=== PATIENT | male | born 1990 | race Caucasian/White ===

== ENCOUNTER 2017-04-18 16:32 | Emergency (ER) | payer OTHER, MEDICAID ==
--- NOTE | 2017-04-18 16:57 | EDPHY ---
H & P Stated Complaint: Landed on L shoulder snowboarding;pain L of sternum;lungs CTA Time Seen by Provider: 04/18/17 16:54 HPI/ROS: HPI: This is a 26-year-old male who presents with Chief Complaint: Landed on L shoulder snowboarding;pain L of sternum; lungs CTA Location: Left anterior chest/clavicle Quality: Injury Duration: 1-3 hours prior to arrival Signs and Symptoms: no shortness of breath at rest, no shortness of breath on exertion, no cough, no hemoptysis, no radiation, no weakness, no tingling, no swelling Timing: Acute Severity: 10/06 Context: Patient is right-hand dominant, was at the park, using his snowboard to go down the stair rail when he lost his balance and fell onto his left side. He denies LOC/head injury/neck pain. He was wearing a helmet. He reports that he feels pain in his left upper anterior chest near his clavicle. He denies any shoulder/elbow/wrist pain or decreased range of motion. Patient denies shortness of breath or increased worsening of pain with inspiration. Patient reports that he has a history of pneumothorax but this injury feels different. Modifying Factors: None ROS: see HPI Constitutional: No fever, no chills, no weight loss Eyes: No blurred vision Respiratory: No shortness of breath, no cough Cardiovascular: No chest pain Gastrointestinal: No nausea, no vomiting no diarrhea Genitourinary: No dysuria Extremities: No myalgias Neurologic: No weakness, no numbness Skin: No rashes Hematologic: No bruising, no bleeding MEDICAL/SURGICAL/SOCIAL HISTORY: Medical history: ADD/ADHD, hx pneumo Surgical history: Denies Social history: Student. CONSTITUTIONAL: Young adult white male, pleasant and cooperative, awake and alert, no obvious distress HEENT: Atraumatic and normocephalic, PERRL, EOMI. no globe entrapment, no raccoon eyes. no Orantes signs.Tympanic membranes clear. No tympanic membrane rupture. Nares patent; no septal hematoma. Oropharynx clear, no exudate and moist pink mucosa. No malocclusion. no dental trauma. Airway patent. No lymphadenopathy. NECK: supple, no midline tenderness, flexion 45 degrees, extension 45 degrees, right and left lateral flexion 45 degrees. No meningismus. Cardiovascular: Normal S1/S2, regular rate, regular rhythm, without murmur rub or gallop. PULMONARY/CHEST: Symmetrical and mild tenderness left anterior chest; mild swelling noted. Clavicle shows no deformity. no crepitus. No ecchymosis. Clear to auscultation bilaterally. Good air movement. No accessory muscle usage. ABDOMEN: Soft, nondistended, nontender, no ecchymosis, no rebound, no guarding , no peritoneal signs, no masses or organomegaly. No CVAT. PELVIC: no pain with rocking; bilateral hips flexion 125 degrees, extension 30 degrees, with no pain internal rotation and no pain external rotation. BACK: No midline tenderness, no paraspinous spasm, deep tendon reflexes 2/2, no pain with straight leg raise EXTREMITIES: 2/2 pulses, left SHOULDER: Arc test abduction to 180, abduction to 45, horizontal flexion 130, horizontal extension to 45, deltoid strength 5 /5. No pain with Neer test/Youssef test (impingement). No Tenderness to palpation over AC joint. no deformities, no clubbing, no cyanosis or edema. NEUROLOGICAL: no focal neuro deficits. GCS 15. SKIN: Warm and dry, no erythema. no rash. Good capillary refill. Source: Patient Exam Limitations: No limitations - Personal History Current Tetanus Diphtheria and Acellular Pertussis (TDAP): Yes Tetanus Vaccine Date: within last 10 years - Medical/Surgical History Hx Asthma: No Hx Chronic Respiratory Disease: No Hx Diabetes: No Hx Cardiac Disease: No Hx Renal Disease: No Hx Cirrhosis: No Hx Alcoholism: No Hx HIV/AIDS: No Hx Splenectomy or Spleen Trauma: No Other PMH: ADD/ADHD, hx pneumo - Social History Smoking Status: Never smoked Constitutional: Initial Vital Signs Temperature (C) 36.6 C 04/18/17 16:34 Heart Rate 88 04/18/17 16:34 Respiratory Rate 18 04/18/17 16:34 Blood Pressure 120/85 H 04/18/17 16:34 O2 Sat (%) 97 04/18/17 16:34 O2 Delivery Mode Room Air Allergies/Adverse Reactions: No Known Allergies Allergy (Verified 04/18/17 16:33) Home Medications: Medication Instructions Recorded Adderall 20 mg (RX) 20 mg PO DAILY 01/22/14 Medical Decision Making - Diagnostics Imaging Results: Imaging Impressions Chest X-Ray 04/18/17 17:02 Impression: Nothing obviously acute identified. Is there any thoracic spine pain ? Please see above. 2. Left clavicle, 2 views History: Pain post ski injury Findings: No clavicle fracture is identified. The left AC joint is mildly widened and there is some soft tissue swelling above the clavicular head right suspect there is an old healed clavicle fracture or postoperative decompression surgery. There is no widening of the coracoclavicular distance. Impression: Query AC joint sprain. No clavicle fracture identified. Clavicle X-Ray 04/18/17 17:02 Impression: Nothing obviously acute identified. Is there any thoracic spine pain ? Please see above. 2. Left clavicle, 2 views History: Pain post ski injury Findings: No clavicle fracture is identified. The left AC joint is mildly widened and there is some soft tissue swelling above the clavicular head right suspect there is an old healed clavicle fracture or postoperative decompression surgery. There is no widening of the coracoclavicular distance. Impression: Query AC joint sprain. No clavicle fracture identified. ED Course/Re-evaluation: Chest x-ray, topical x-ray, ice pack and oral medications ordered Fall accidental in nature No signs of neurovascular compromise/tenting of skin/compartment syndrome/ extremities and joints examined above and below area of concern and are neurovascularly intact. No respiratory distress/no hypoxia Given ibuprofen. X-ray my read shows no signs of pneumothorax/rib fracture/clavicle fracture/ sternal fracture. Patient reports that he has a history of clavicle fracture when he was young child which would account for the widened AC joint space. He denies any pain in the area at this time and low yield for sprain. This patient was seen under the supervision of my secondary supervising physician. I evaluated care for this patient independently. Discussed this patient with Dr. Pimentel who did not see the patient. Patient's presentation, labs/imaging, treatment and plan of care were discussed with secondary supervising physician. Differential Diagnosis: Differential diagnosis includes but is not limited to rib contusion, rib fracture, sternal fracture, clavicle fracture, pneumothorax. - Data Points Medications Given: Discontinued Medications Ibuprofen (Motrin) 600 mg PO EDNOW ONE Stop: 04/18/17 17:03 Last Admin: 04/18/17 17:05 Dose: 600 mg Departure - Departure Disposition: Home, Routine, Self-Care Clinical Impression: Contusion, chest wall Qualifiers: Encounter type: initial encounter Laterality: left Qualified Code(s): S20.212A - Contusion of left front wall of thorax, initial encounter Condition: Good Instructions: Chest Wall Pain (ED), Rib Contusion (ED) Additional Instructions: Take Tylenol 650 mg every 4 hours and/or Ibuprofen 600 mg every 8 hours with food as needed for pain. Apply ice for 30 minutes at a time; 2-3 times per day for the next 1-2 days. Follow up with Orthopedics in 7-10 days if symptoms persist or worsen at which time they will evaluate and recommend with you if conservative management versus adjuvant therapy is indicated. The x-rays obtained in the emergency department today demonstrate no evidence of an obvious fracture. Sometimes fractures are not obvious on the initial set of x-rays performed in the ED. For this reason, you should have repeat x-rays performed in 7-10 days if you are having any pain exclude the possibility of an occult fracture. Referrals: ANDREW Romero,. [Primary Care Provider] - As per Instructions Frank Bautista MD [Medical Doctor] - As per Instructions
[2017-04-18] MEDS ORDERED: IBUPROFEN 600 MG TAB PO ONE (17:02)
[2017-04-18 18:20] VITALS: BP 118/70; PULSE 78; RESP 16; TEMP 98.6; O2SAT 96
== END 2017-04-18 18:20 | disposition home or self-care (01) ==
DX: S20.212A Contusion of left front wall of thorax, initial encounter (principal); V00.311A Fall from snowboard, initial encounter; Y92.830 Public park as the place of occurrence of the external cause; Y93.89 Activity, other specified